=== PATIENT | male | born 1970 | race Caucasian/White ===

== ENCOUNTER 2016-10-28 08:37 | Day surgery (SDC) | payer BC ==
[~2016-10-28] VITALS: Ht 185.5 cm; Wt 122.0 kg
[2016-10-28] VITALS (143 sets, daily range): BP systolic 101–119; BP diastolic 57–87; PULSE 57–78; TEMP 96.6–98.4; O2SAT 90–99
[2016-10-28 09:59] LABS: HEMATOCRIT 41.6 % (42.0-52.0); HEMOGLOBIN 14.5 g/dl (13.5-18.0); MEAN CELL VOLUME 91 fl (80.0-100.0); MEAN CORPUSCULAR HEMOGLOBIN 32 pg (27.0-31.0); MEAN CORPUSCULAR HGB CONC 35 g/dl (33.0-37.0); MEAN PLATELET VOLUME 8.8 fl (7.4-10.4); PLATELET COUNT 221 K/mm3 (130-400); RED BLOOD COUNT 4.56 M/mm3 (4.20-5.60); REDCELL DISTRIBUTION WIDTH-CV 14.1 % (11.5-14.5); WHITE BLOOD COUNT 6.3 K/mm3 (4.8-10.8)
[2016-10-28 10:09] LABS: CALCIUM 8.5 mg/dL (8.4-10.2); CREATININE, serum 0.83 mg/dL (0.66-1.25); POTASSIUM 3.8 mmol/L (3.4-5.0); PROTHROMBIN TIME 11.3 SECONDS (9.7-12.8)
[2016-10-28] MEDS ORDERED: PRINIVIL5 MG PO (10:10)
[2016-10-28] MEDS ORDERED: PLAVIX 75MG TAB75 MG PO (10:13)
[2016-10-28] MEDS ORDERED: IMDUR 30MG30 MG/TAB PO (10:14)
[2016-10-28] MEDS ORDERED: LASIX 20MG TABL20 MG PO (10:14)
[2016-10-28] MEDS ORDERED: TOPROL XL 25MG25 MG PO (10:15)
[2016-10-28] MEDS ORDERED: LIPITOR 40MG TA40 MG PO (10:15)
[2016-10-28] MEDS ORDERED: NITROSTAT0.4 MG/TAB SL (10:16)
[2016-10-28] MEDS ORDERED: FLONASEALLERGY NS (10:16)
[2016-10-28] MEDS ORDERED: LAMICTAL200 MG PO (10:17)
[2016-10-28] MEDS ORDERED: ASPIRIN 81M81 MG/TA2 PO (10:17)
[2016-10-28] MEDS ORDERED: VALIUM 10MG10 MG/TAB PO (10:18)
[2016-10-28] MEDS ORDERED: NEURONTIN300 MG/CAP PO (10:18)
[2016-10-28] MEDS ORDERED: PERCOCET 325 MG1 TA2 PO (10:20)
[2016-10-29 03:02] VITALS: BP 94/59; PULSE 78; TEMP 99
[2016-10-29 08:02] VITALS: BP 100/63; PULSE 73; TEMP 97.4
[2016-10-29 08:37] LABS: BASO % 0.4 % (0.0-2.0); EOS # 0.2 (0.0-0.7); EOS % 2.7 % (0-4.0); GRAN % 59.9 % (42.2-75.2); HEMATOCRIT 40.9 % (42.0-52.0); HEMOGLOBIN 13.7 g/dl (13.5-18.0); LYMPH % 29.4 % (20.0-51.0); MEAN CELL VOLUME 93 fl (80.0-100.0); MEAN CORPUSCULAR HEMOGLOBIN 31 pg (27.0-31.0); MEAN CORPUSCULAR HGB CONC 34 g/dl (33.0-37.0); MEAN PLATELET VOLUME 9.1 fl (7.4-10.4); MONO # 0.5 (0.1-0.6); MONO % 7.3 % (1.7-9.3); PLATELET COUNT 211 K/mm3 (130-400); RED BLOOD COUNT 4.41 M/mm3 (4.20-5.60); WHITE BLOOD COUNT 6.7 K/mm3 (4.8-10.8)
[2016-10-29 09:13] LABS: CALCIUM 8.1 mg/dL (8.4-10.2); CREATININE, serum 0.82 mg/dL (0.66-1.25); POTASSIUM 4.1 mmol/L (3.4-5.0)
== END 2016-10-29 11:21 | disposition home or self-care (01) ==
LOC: COL.RAD 08:37 → ICU 12:15 → MEDICAL 17:54 → COL.RAD 10-29 11:21
PROVIDERS: Internal Medicine Cardiovascular Disease
DX: I25.10 Atherosclerotic heart disease of native coronary artery without angina pectoris (principal); R07.9 Chest pain, unspecified; R06.02 Shortness of breath; E78.5 Hyperlipidemia, unspecified; I10 Essential (primary) hypertension; F17.290 Nicotine dependence, other tobacco product, uncomplicated
CPT/HCPCS: OP; C1760; C1769; C1874; C1876; J0583; J2250; J2405; J3010; Q9967

== ENCOUNTER 2017-12-23 07:00 | Day surgery (SDC) | payer BC ==
[2017-12-23] VITALS (14 sets, daily range): BP systolic 95–112; BP diastolic 61–73; PULSE 52–80; TEMP 97.6–98.5
[~2017-12-23] VITALS: Ht 185.6 cm; Wt 110.0 kg
[~2017-12-23 07:00] MED LIST: ASPIRIN 81M81 MG/TA2 PO; FLONASEALLERGY NS; IMDUR 30MG30 MG/TAB PO; LAMICTAL200 MG PO; LASIX 20MG TABL20 MG PO; LIPITOR 40MG TA40 MG PO; NEURONTIN300 MG/CAP PO; NITROSTAT0.4 MG/TAB SL; PERCOCET 325 MG1 TA2 PO; PLAVIX 75MG TAB75 MG PO; PRINIVIL5 MG PO; TOPROL XL 25MG25 MG PO; VALIUM 10MG10 MG/TAB PO
[2017-12-23 07:40] LABS: HEMATOCRIT 44.8 % (42.0-52.0); HEMOGLOBIN 15.1 g/dl (13.5-18.0); MEAN CELL VOLUME 89 fl (80.0-100.0); MEAN CORPUSCULAR HEMOGLOBIN 30 pg (27.0-31.0); MEAN CORPUSCULAR HGB CONC 34 g/dl (33.0-37.0); MEAN PLATELET VOLUME 8.7 fl (7.4-10.4); PLATELET COUNT 215 K/mm3 (130-400); RED BLOOD COUNT 5.02 M/mm3 (4.20-5.60); REDCELL DISTRIBUTION WIDTH-CV 13.2 % (11.5-14.5)
[2017-12-23] MEDS ORDERED: DULCOLAX STOOL100 MG PO (07:47)
[2017-12-23 07:50] LABS: INR 0.9 (0.8-3.0); PROTHROMBIN TIME 10.1 SECONDS (9.7-12.8)
[2017-12-23 07:51] LABS: CALCIUM 8.9 mg/dL (8.4-10.2); CREATININE, serum 0.74 mg/dL (0.66-1.25); POTASSIUM 3.7 mmol/L (3.4-5.0)
[2017-12-23] MEDS ORDERED: IMDUR 60MG60 MG/TAB PO (09:33)
[2017-12-23] MEDS ORDERED: LIPITOR 80MG80 MG PO (09:33)
== END 2017-12-23 16:08 | disposition home or self-care (01) ==
LOC: COL.CAR 07:00
PROVIDERS: Internal Medicine Cardiovascular Disease
DX: I24.0 Acute coronary thrombosis not resulting in myocardial infarction (principal); I25.10 Atherosclerotic heart disease of native coronary artery without angina pectoris; I10 Essential (primary) hypertension; R00.2 Palpitations; E78.5 Hyperlipidemia, unspecified; F17.210 Nicotine dependence, cigarettes, uncomplicated; Z79.02 Long term (current) use of antithrombotics/antiplatelets; Z79.82 Long term (current) use of aspirin; Z79.899 Other long term (current) drug therapy; Z80.9 Family history of malignant neoplasm, unspecified; Z95.5 Presence of coronary angioplasty implant and graft
CPT/HCPCS: J2250; J3010; Q9967

== ENCOUNTER → 2020-11-08 | Outpatient (CLI) | payer MEDICARE ==
[~2020-11-08] MED LIST changes: +DULCOLAX STOOL100 MG PO; +IMDUR 60MG60 MG/TAB PO; +LIPITOR 80MG80 MG PO
== END ==
LOC: MHCPAIN 10:29
DX: M47.816 Spondylosis without myelopathy or radiculopathy, lumbar region (principal); M54.5 Low back pain; M53.3 Sacrococcygeal disorders, not elsewhere classified; G89.29 Other chronic pain
CPT/HCPCS: G0463

== ENCOUNTER → 2020-11-27 | Outpatient (CLI) | payer MEDICARE | LOC: MHCPAIN 11-20 16:34 | DX: M47.818 Spondylosis without myelopathy or radiculopathy, sacral and sacrococcygeal region (principal); M53.3 Sacrococcygeal disorders, not elsewhere classified | CPT/HCPCS: G0260; J1040; Q9967 ==

== ENCOUNTER → 2020-12-11 | Outpatient (CLI) | payer MEDICARE | LOC: MHCPAIN 10:45 | DX: M47.816 Spondylosis without myelopathy or radiculopathy, lumbar region (principal); M53.3 Sacrococcygeal disorders, not elsewhere classified; G89.29 Other chronic pain | CPT/HCPCS: G0463 ==

== ENCOUNTER → 2021-04-11 | Outpatient (CLI) | payer MEDICARE | LOC: MHCPAIN 10:49 | DX: M47.817 Spondylosis without myelopathy or radiculopathy, lumbosacral region (principal); M53.3 Sacrococcygeal disorders, not elsewhere classified; M54.5 Low back pain | CPT/HCPCS: G0463; J1040; Q9967 ==

== ENCOUNTER → 2021-04-12 | Outpatient (CLI) | payer MEDICARE | LOC: MHCPAIN 12:16 | DX: M47.817 Spondylosis without myelopathy or radiculopathy, lumbosacral region (principal); M53.3 Sacrococcygeal disorders, not elsewhere classified | CPT/HCPCS: G0260 ==

== ENCOUNTER → 2021-10-16 | Outpatient (CLI) | payer MEDICARE | LOC: MHCPAIN 10:27 | DX: M47.817 Spondylosis without myelopathy or radiculopathy, lumbosacral region (principal); M53.3 Sacrococcygeal disorders, not elsewhere classified; G89.29 Other chronic pain | CPT/HCPCS: G0463 ==

== ENCOUNTER → 2021-10-25 | Outpatient (CLI) | payer MEDICARE | LOC: MHCPAIN 08:43 | DX: M47.817 Spondylosis without myelopathy or radiculopathy, lumbosacral region (principal); M53.3 Sacrococcygeal disorders, not elsewhere classified | CPT/HCPCS: G0260; J1040; Q9967 ==

== ENCOUNTER 2022-02-22 12:52 | Inpatient (IN) | payer MEDICARE ==
[~2022-02-22] VITALS: Ht 185.4 cm; Wt 112.9 kg
[2022-02-22 13:19] LABS: BASO % 0.4 % (0.0-2.0); EOS # 0.3 K/mm3 (0.0-0.7); EOS % 2.8 % (0.0-4.0); GRAN # 5.8 K/mm3 (1.4-6.5); GRAN % 64.9 % (42.2-75.2); HEMOGLOBIN 15.6 g/dl (13.5-18.0); LYMPH # 2.2 K/mm3 (1.2-3.4); LYMPH % 23.9 % (20.0-51.0); MEAN CELL VOLUME 94 fl (80.0-100.0); MEAN CORPUSCULAR HEMOGLOBIN 31 pg (27-31); MEAN CORPUSCULAR HGB CONC 33 g/dl (33.0-37.0); MEAN PLATELET VOLUME 8.7 fl (7.4-10.4); MONO # 0.7 K/mm3 (0.1-0.6); MONO % 7.7 % (1.7-9.3); PLATELET COUNT 294 K/mm3 (130-400); RED BLOOD COUNT 5.01 M/mm3 (4.20-5.60); REDCELL DISTRIBUTION WIDTH-CV 14.6 % (11.5-14.5)
[2022-02-22 13:29] LABS: ALBUMIN 3.5 gm/dL (3.5-5.0); ANION GAP 14 mmol/L (7-16); BLOOD UREA NITROGEN 11 mg/dL (8-26); CALCIUM 9.3 mg/dL (8.4-10.2); CARBON DIOXIDE 28 mmol/L (22-29); CHLORIDE 102 mmol/L (98-107); CREATININE, serum 0.95 mg/dL (0.72-1.25); GLUCOSE 104 mg/dL (70-99); PHOSPHOROUS 3.6 mg/dL (2.3-4.7); POTASSIUM 3.9 mmol/L (3.5-4.5); SODIUM 144 mmol/L (136-145)
[2022-02-22 13:35] LABS: TROPONIN-I < 0.010 ng/mL (0.00-0.033)
[2022-02-22] MEDS ORDERED: CARTIA XT180 MG PO (13:46)
[2022-02-22] MEDS ORDERED: PROZAC40 MG PO (13:47)
[2022-02-22] MEDS ORDERED: IMDUR 60MG60 MG/TAB PO (13:48)
[2022-02-22] MEDS ORDERED: PROAIR HFA0.09 MG/AC IH (13:48)
[2022-02-22] MEDS ORDERED: VITAMIN D250 MCG PO (13:49)
[2022-02-22] MEDS ORDERED: VITAMIN B12 681 TAB PO (13:49)
[2022-02-22] MEDS ORDERED: SINGULAIR 110 MG/TAB PO (13:49)
[2022-02-22] MEDS ORDERED: VITAMIN C500 MG PO (13:49)
[2022-02-22] MEDS ORDERED: ZYRTEC 10MG10 MG PO (13:50)
--- NOTE | 2022-02-22 17:00 | NUR ---
PT TO FLOOR FROM ER. PT STATES THAT HE IS HAVING A10 OUT OF 10 CHEST PAIN. PT GIVEN MORPHINE. PT STATES THAT HE IS HUNGRY AND WOULD LIKE TO ORDER SOMETHING TO EAT. ASSISTED PT TO DO SO. PT STATES NO OTHER NEEDS AT THIS TIME. CALL LIGHT IS WTIHIN REACH.
[2022-02-22 17:38] LABS: HEMATOCRIT 47.4 % (42.0-52.0); MEAN CELL VOLUME 93 fl (80.0-100.0); MEAN CORPUSCULAR HEMOGLOBIN 31 pg (27-31); MEAN CORPUSCULAR HGB CONC 34 g/dl (33.0-37.0); MEAN PLATELET VOLUME 8.4 fl (7.4-10.4); PLATELET COUNT 295 K/mm3 (130-400); REDCELL DISTRIBUTION WIDTH-CV 14.5 % (11.5-14.5)
[2022-02-22 17:46] LABS: PROTHROMBIN TIME 11.3 SECONDS (9.7-12.8)
[2022-02-22 17:48] LABS: PARTIAL THROMBOPLASTIN TIME 30.6 SECONDS (26.0-37.0)
[2022-02-22 20:01] VITALS: BP 101/55; PULSE 45; TEMP 97.4
[2022-02-22 23:22] VITALS: BP 106/56; PULSE 49; TEMP 97.7
[2022-02-23 03:53] VITALS: BP 101/59; PULSE 52; TEMP 97.5
--- NOTE | 2022-02-23 05:00 | NUR ---
ASSESSMENT COMPLETE FOR THIS SHIFT. PT RESTING IN BED WATCHING TV. PT COMPLAINED OF CHEST PAIN. HOSPITALIST CALLED. NORCO ORDERED AND GIVEN. PT FELT NORCO WAS EFFECTIVE AT THIS TIME. PT DENIED SOB, N,V,D OR DIZZINESS. CALL LIGHT WITHIN REACH.
[2022-02-23 06:17] LABS: BASO % 0.2 % (0.0-2.0); EOS # 0.3 K/mm3 (0.0-0.7); EOS % 3.2 % (0.0-4.0); GRAN # 5.7 K/mm3 (1.4-6.5); GRAN % 59.2 % (42.2-75.2); HEMATOCRIT 41.6 % (42.0-52.0); LYMPH # 2.9 K/mm3 (1.2-3.4); LYMPH % 30.6 % (20.0-51.0); MEAN CELL VOLUME 94 fl (80.0-100.0); MEAN CORPUSCULAR HEMOGLOBIN 31 pg (27-31); MEAN CORPUSCULAR HGB CONC 33 g/dl (33.0-37.0); MEAN PLATELET VOLUME 8.6 fl (7.4-10.4); MONO # 0.6 K/mm3 (0.1-0.6); MONO % 6.5 % (1.7-9.3); PLATELET COUNT 236 K/mm3 (130-400); RED BLOOD COUNT 4.42 M/mm3 (4.20-5.60); REDCELL DISTRIBUTION WIDTH-CV 14.5 % (11.5-14.5)
[2022-02-23 06:27] LABS: HEMOGLOBIN 13.7 g/dl (13.5-18.0)
[2022-02-23 06:35] LABS: CALCIUM 8.7 mg/dL (8.4-10.2); CHOLESTEROL RISK RATIO 3.5; CREATININE, serum 0.76 mg/dL (0.72-1.25); MAGNESIUM 1.8 mg/dL (1.6-2.6); PHOSPHOROUS 4.4 mg/dL (2.3-4.7); POTASSIUM 4.2 mmol/L (3.5-4.5)
[2022-02-23 06:58] LABS: TSH w REFLEX 3.511 uIU/mL (0.350-4.940)
[2022-02-23 08:00] VITALS: BP 87/52; PULSE 52; TEMP 97.8
--- NOTE | 2022-02-23 08:50 | NUR ---
PT LAYING SUPINE IN BED ON ROOM AIR WATCHING TV. PT STATES THAT HE IS HAVING CHEST PAIN A 5 OUT OF 10. THERAPY AT BEDSIDE TO WORK WITH PT. HEPARIN DRIP INFUSING AT 10ML/HR. PT STATES NO NEEDS/CONCERNS AT THIS TIME. CALL LIGHT IS WITHIN REACH.
[2022-02-23 09:22] VITALS: BP 97/63
[2022-02-23 11:48] VITALS: BP 90/50; PULSE 59; TEMP 98.2
--- NOTE | 2022-02-23 14:47 | NUR ---
sheet metal layout worker met with patient to complete intake and discuss discharge plan. Patient reports that he lives at home [place] alone. He is independent with his ADL's and does not utilize any DME to assist with mobility. Patient does utilize a Bipap at night which is managed through [facility] in [place].Patient's pcp is in [place] and he utilizes [place] [employer] (Inspect Manager) for prescriptions. Patient states that his daughter is his DPOA-HC. He is scheduled to get a heart cath on Friday and possible pacemaker, but is planning on returning home once medically ready. Discharge plan:Home
[2022-02-23 15:53] VITALS: BP 84/50; PULSE 59; TEMP 98
--- NOTE | 2022-02-23 18:33 | NUR ---
PT LAYING SUPINE IN BED ON ROOM AIR. PT STATES THAT HE IS STILL HAVING CHEST PAIN. "IT HURTS WORSE NOW AFTER I TOOK THE PAIN PILL." PT STATES NO OTHER NEEDS/CONCERNS AT THIS TIME. CALL LIGHT IS WITHIN REACH.
[2022-02-23 20:26] VITALS: BP 104/58; PULSE 65; TEMP 97.8
[2022-02-24] VITALS (7 sets, daily range): BP systolic 88–116; BP diastolic 52–86; PULSE 55–72; TEMP 97.7–98.8
--- NOTE | 2022-02-24 06:00 | NUR ---
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 PT CONTINUES TO COMPLAIN AT CHEST PAIN. PT GIVEN NORCO FOR PAIN. NORCO SEEMS TO ALLOW PT TO SLEEP UNTIL MORNING BEFORE THE NEED FOR MORE PAIN MEDICATION. CALL LIGHT WITHIN REACH.
[2022-02-24 06:42] LABS: BASO # 0.1 K/mm3 (0.0-0.2); BASO % 0.6 % (0.0-2.0); EOS # 0.3 K/mm3 (0.0-0.7); GRAN % 50.3 % (42.2-75.2); HEMATOCRIT 39.9 % (42.0-52.0); HEMOGLOBIN 13.5 g/dl (13.5-18.0); LYMPH # 3.1 K/mm3 (1.2-3.4); LYMPH % 38.5 % (20.0-51.0); MEAN CELL VOLUME 92 fl (80.0-100.0); MEAN CORPUSCULAR HEMOGLOBIN 31 pg (27-31); MEAN CORPUSCULAR HGB CONC 34 g/dl (33.0-37.0); MEAN PLATELET VOLUME 8.9 fl (7.4-10.4); MONO # 0.5 K/mm3 (0.1-0.6); MONO % 6.2 % (1.7-9.3); PLATELET COUNT 241 K/mm3 (130-400); RED BLOOD COUNT 4.36 M/mm3 (4.20-5.60); REDCELL DISTRIBUTION WIDTH-CV 14.2 % (11.5-14.5)
[2022-02-24 06:51] LABS: ALBUMIN 3.1 gm/dL (3.5-5.0); CALCIUM 8.8 mg/dL (8.4-10.2); CREATININE, serum 0.77 mg/dL (0.72-1.25); MAGNESIUM 1.9 mg/dL (1.6-2.6); PHOSPHOROUS 4.2 mg/dL (2.3-4.7)
--- NOTE | 2022-02-24 09:13 | NUR ---
PT LAYING SUPINE IN BED ON ROOM AIR. PT STATES THAT HE IS STILL HAVING CHEST PAIN. PT STATES "I DON'T KNOW WHY BUT I AM REALLY TIRED TODAY. I JUST WANT TO LAY IN BED AND REST." PT STATES NO NEEDS/CONCERNS AT THIS TIME. CALL LIGHT IS WITHIN REACH.
--- NOTE | 2022-02-24 18:49 | NUR ---
pt laying supine in bed on room air. pt states that he is still having chest pain. prn pain medication was given. pt was infomred that he will be npo at midnight. pt voices understanding. pt states no other needs or concerns. call light is within reach.
[2022-02-25] VITALS (9 sets, daily range): BP systolic 102–117; BP diastolic 56–74; PULSE 54–89; TEMP 97.5–98.1
--- NOTE | 2022-02-25 04:57 | NUR ---
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 PT GIVEN NORCO PER REQUEST FOR CHEST PAIN. PT NPO AT MIDNIGHT. PT STATES HE FEELS LIKE THERE IS SOMETHING THE PHYSICIANS ARE KEEPING FROM HIM. HOWEVER PT COULD NOT TELL ME WHAT THE WAS. CALL LIGHT WITHIN REACH.
[2022-02-25 06:18] LABS: BASO % 0.5 % (0.0-2.0); EOS # 0.3 K/mm3 (0.0-0.7); GRAN # 3.9 K/mm3 (1.4-6.5); GRAN % 50.8 % (42.2-75.2); HEMATOCRIT 40.5 % (42.0-52.0); HEMOGLOBIN 13.3 g/dl (13.5-18.0); LYMPH # 2.9 K/mm3 (1.2-3.4); MEAN CELL VOLUME 94 fl (80.0-100.0); MEAN CORPUSCULAR HEMOGLOBIN 31 pg (27-31); MEAN CORPUSCULAR HGB CONC 33 g/dl (33.0-37.0); MEAN PLATELET VOLUME 8.8 fl (7.4-10.4); MONO # 0.6 K/mm3 (0.1-0.6); MONO % 7.4 % (1.7-9.3); PLATELET COUNT 250 K/mm3 (130-400); REDCELL DISTRIBUTION WIDTH-CV 14.4 % (11.5-14.5)
[2022-02-25 06:44] LABS: CALCIUM 8.7 mg/dL (8.4-10.2); CREATININE, serum 0.78 mg/dL (0.72-1.25); MAGNESIUM 1.9 mg/dL (1.6-2.6); PHOSPHOROUS 4.2 mg/dL (2.3-4.7); POTASSIUM 4.1 mmol/L (3.5-4.5)
--- NOTE | 2022-02-25 07:12 | NUR ---
HEPARIN GTT CONFIRMED AT 10UNITS AN HOUR.
--- NOTE | 2022-02-25 11:38 | NUR ---
See merge for all medication, assessment, intervention, and vital sign times.
--- NOTE | 2022-02-25 13:41 | NUR ---
PATIENT RETURNED FROM [facility] MICROBIOLOGIST, STILL COMPLAINING OF 5-6 OUT OF 10 CHEST PAIN.
--- NOTE | 2022-02-25 14:25 | NUR ---
PATIENT COMPLAINTS OF 9 OF 10 CHEST PAIN, RADIATING TO LEFT ARM. ALERT AND ORIENTED, HEPARIN GTT AT 10 UNITS AN HOUR. 1/2 NS HUNG ON GRAVITY TUBING FOR PROCEDURE, HEART CATH AND PACEMAKER PLANNED TODAY. NPO SINCE MIDNIGHT. SKIN INTACT. INDEPENDENT IN ROOM.
--- NOTE | 2022-02-25 19:00 | NUR ---
THE PATIENT IS ON THE FLOOR S/P PACEMAKER PLACEMENT. REPORT RCVD FROM LISE CORTEZ.
--- NOTE | 2022-02-25 19:49 | NUR ---
RELASED ALL AIR FROM SAFEGUARD DEVICE ON FEM SITE. NO BLEEDING, NO HEMATOMA. PULSES PATENT. PATIENT COMPLETED FLAT TIME, SAT PATIENT UP TO 35-40 DEGREES, REEVALUATED FEM-SITE. NO BLEEDING.
--- NOTE | 2022-02-25 20:18 | NUR ---
HEART CATH AND PACEMAKER PLACEMENT TODAY. PATIENT RETURNED IN SOME PAIN, PAIN MEDS PROVIDED, NO FURTHER DISCOMFORT. DIET REORDERED, PATIENT EATING AND TOLERATING PO INTAKE. NO BLEEDING AT FEMORAL SITE, NO HEMATOMA. PACEMAKER SITE SOFT, NO HEMATOMA PRESENT, NO PAIN. SAFEGUARD AIR REMOVED, HOWEVER SAFEGUARD STILL IN PLACE, TO REMOVE WOULD REMOVE TEGADERM AND DID NOT WANT TO DISTURB ANGIOSEAL AND CLOT. NO OTHER CONCERNS AT THIS TIME.
[2022-02-26] VITALS (8 sets, daily range): BP systolic 101–120; BP diastolic 59–70; PULSE 60–75; TEMP 97.7–98.3
[2022-02-26 06:16] LABS: BASO % 0.4 % (0.0-2.0); EOS # 0.3 K/mm3 (0.0-0.7); EOS % 4.3 % (0.0-4.0); GRAN # 5.1 K/mm3 (1.4-6.5); GRAN % 64.5 % (42.2-75.2); HEMATOCRIT 38.7 % (42.0-52.0); HEMOGLOBIN 12.8 g/dl (13.5-18.0); LYMPH # 1.8 K/mm3 (1.2-3.4); MEAN CELL VOLUME 94 fl (80.0-100.0); MEAN CORPUSCULAR HEMOGLOBIN 31 pg (27-31); MEAN CORPUSCULAR HGB CONC 33 g/dl (33.0-37.0); MEAN PLATELET VOLUME 8.8 fl (7.4-10.4); MONO # 0.6 K/mm3 (0.1-0.6); MONO % 7.5 % (1.7-9.3); PLATELET COUNT 209 K/mm3 (130-400); RED BLOOD COUNT 4.12 M/mm3 (4.20-5.60); REDCELL DISTRIBUTION WIDTH-CV 14.2 % (11.5-14.5)
--- NOTE | 2022-02-26 06:30 | NUR ---
THE PATIENT HAD AN UNEVENTFUL SHIFT. SOME MILD PAIN MOSTLY ALLEVIATED BY PAIN MEDICATIONS ORDERED. PT DID COMPLAIN OF DISCOMFORT AT THE PACER SITE. NO OTHER CONCERNS. REPORT GIVEN TO LISE CORTEZ.
[2022-02-26 06:45] LABS: ALBUMIN 2.9 gm/dL (3.5-5.0); CALCIUM 8.6 mg/dL (8.4-10.2); CREATININE, serum 0.74 mg/dL (0.72-1.25); MAGNESIUM 1.8 mg/dL (1.6-2.6); PHOSPHOROUS 3.8 mg/dL (2.3-4.7); POTASSIUM 3.7 mmol/L (3.5-4.5)
--- NOTE | 2022-02-26 08:34 | NUR ---
PATIENT C/O 8 OUT OF 10 PAIN. VITALS STABLE, A & O x 4. TOLERATING PO INTAKE. RESPERATIONS 12-14BPM. FEMERAL CATH SITE, BLOODY DRAINAGE NOT EXCEEDED FROM INITAL AREA UPON RETURN FROM MOLECULAR PATHOLOGIST. SAFE GUARD REMOVED FROM SITE THIS MORNING ON ASSESSMENT. LEFT AT BEDSIDE FOR SAFTEY MEASURES. GAUZE INTACT, WILL PLACE ADDITIONAL TEGADERM OVER SITE PRIMARY TEGADERM EDGES HAVE LIFTED. NO PAIN NOTED AT CATH SITE. PACEMAKER SITE EXTREMELY TENDER TO TOUCH, SOFT ON PALPATION, NO SIGNS OF HEMATOMA. NO BRUISING. DOWNLOAD COMPLETE. PAIN NOT CONTROLLED CURRENTLY. PATIENT INDEPENDENT IN ROOM. PATIENT CONCERNED ABOUT DISCHARGE TODAY WITH PAIN MANAGEMENT. WILL CONSULT PROVIDER.
[2022-02-26] MEDS ORDERED: CEPHALEXIN500 M1 PO (09:49)
--- NOTE | 2022-02-26 10:39 | NUR ---
Guidance Counselor met with patient and presented IM form. Patient verbalized understanding and provided signature. SW placed form in chart and provided copy to patient.
--- NOTE | 2022-02-26 14:34 | NUR ---
See merge for all medication, assessment, intervention, and vital sign times.
--- NOTE | 2022-02-26 19:14 | NUR ---
PATIENT WENT TO TUBE MOUNTER FOR PACER LEAD REVISION. RETURNED WITH 8(10) PAIN. CAPPED ON TYLENOL MG TILL 1744, ONE TIME DOSE OF ROXICODONE ORDERED AND GIVEN. PATIENT HAS HAD NO CALLED COMPLAINTS OF PAIN. MEALS ORDERED. VITALS STABLE.
[2022-02-27 03:41] VITALS: BP 118/61; PULSE 71; TEMP 97.9
[2022-02-27 06:56] LABS: BASO % 0.3 % (0.0-2.0); EOS # 0.4 K/mm3 (0.0-0.7); GRAN # 6.2 K/mm3 (1.4-6.5); GRAN % 66.7 % (42.2-75.2); HEMATOCRIT 39.1 % (42.0-52.0); HEMOGLOBIN 12.8 g/dl (13.5-18.0); LYMPH # 1.9 K/mm3 (1.2-3.4); LYMPH % 20.3 % (20.0-51.0); MEAN CELL VOLUME 94 fl (80.0-100.0); MEAN CORPUSCULAR HEMOGLOBIN 31 pg (27-31); MEAN CORPUSCULAR HGB CONC 33 g/dl (33.0-37.0); MEAN PLATELET VOLUME 8.8 fl (7.4-10.4); MONO # 0.8 K/mm3 (0.1-0.6); MONO % 8.3 % (1.7-9.3); PLATELET COUNT 199 K/mm3 (130-400); RED BLOOD COUNT 4.16 M/mm3 (4.20-5.60); REDCELL DISTRIBUTION WIDTH-CV 14.3 % (11.5-14.5)
[2022-02-27 07:12] LABS: ALBUMIN 3.1 gm/dL (3.5-5.0); CALCIUM 8.7 mg/dL (8.4-10.2); CREATININE, serum 0.75 mg/dL (0.72-1.25); MAGNESIUM 1.8 mg/dL (1.6-2.6); PHOSPHOROUS 3.9 mg/dL (2.3-4.7); POTASSIUM 3.8 mmol/L (3.5-4.5)
[2022-02-27 07:48] VITALS: BP 105/68; PULSE 65; TEMP 97.6
--- NOTE | 2022-02-27 08:20 | NUR ---
PATIENT RESTING IN BED, COMPLAINTS OF 7 (10) PAIN. NO BOWEL MOVEMENTS PER PATIENT IN "2-3 DAYS". BOWELS HYPOACTIVE IN ALL QUADS. PATIENT STATES HE IS STILL PASSING GAS. NO URINARY COMPLAINTS. APPETITE NORMAL. PLAN TO DISCHARGE HOME TODAY. WILL DISCUSS WITH PROVIDER PAIN MANAGEMENT FOR DISCHARGE.
--- NOTE | 2022-02-27 12:41 | NUR ---
ON H OURLY ROUNDING, PATIENT REPORTED BLOOD SPOTS ON HIS GOWN, THIS NURSE CHECKED GROIN CATH SITE, IT HAD BEEN BLEEDING. SMALL AMOUNT CHRISTY RED BLOOD. STAINING ON PATIENTS UNDERWEAR. GAUZE AND TEGADERM FROM PROCEDURE FALLING OFF. REMOVED BANDAGE, REPLACED WITH 2-PLY GAUZE FOLDED, FRESH TEGADERM. APPLIED MANUAL PRESSURE ON TOP OF A 2LB SANDBAG FOR 10MIN. NO ADDITIONAL DRAINAGE OR BLEEDING NOTED. LEFT 2LB SAND BAG IN PLACE ON SITE FOR AN ADDITIONAL 30MIN, WILL REASSESS SITE BEFORE DISCHARGE.
--- NOTE | 2022-02-27 14:00 | NUR ---
Patient groin site clean dry and intact. No drainage. This nurse assisted in dressing patient. Reviewed all discharge instructions. Iv discontinued, tele discontinued. Patient verbalized understanding of instructions. Patient walked out upon discharge with PCT escort and support person.
== END 2022-02-27 13:45 | disposition home or self-care (01) | DRG 243 ==
LOC: COL.ER 12:52 → MEDICAL 14:55
PROVIDERS: Emergency Medicine; ADMIT Internal Medicine
PROC: 4A023N7 Measurement of Cardiac Sampling and Pressure, Left Heart, Percutaneous Approach (ICD-10-PCS; principal; 2022-02-25)
PROC: 0JH606Z Insertion of Pacemaker, Dual Chamber into Chest Subcutaneous Tissue and Fascia, Open Approach (ICD-10-PCS; 2022-02-25)
PROC: 02HK3JZ Insertion of Pacemaker Lead into Right Ventricle, Percutaneous Approach (ICD-10-PCS; 2022-02-25)
PROC: 02WA3MZ Revision of Cardiac Lead in Heart, Percutaneous Approach (ICD-10-PCS; 2022-02-25)
PROC: 02H63JZ Insertion of Pacemaker Lead into Right Atrium, Percutaneous Approach (ICD-10-PCS; 2022-02-25)
PROC: B2111ZZ Fluoroscopy of Multiple Coronary Arteries using Low Osmolar Contrast (ICD-10-PCS; 2022-02-25)
DX: I49.5 Sick sinus syndrome (principal); T82.120A Displacement of cardiac electrode, initial encounter; R07.9 Chest pain, unspecified; I25.10 Atherosclerotic heart disease of native coronary artery without angina pectoris; I10 Essential (primary) hypertension; E78.5 Hyperlipidemia, unspecified; Z95.5 Presence of coronary angioplasty implant and graft; Z79.02 Long term (current) use of antithrombotics/antiplatelets; Z79.82 Long term (current) use of aspirin; Z79.899 Other long term (current) drug therapy; Z87.891 Personal history of nicotine dependence; Z20.822 Contact with and (suspected) exposure to COVID-19; Y84.8 Other medical procedures as the cause of abnormal reaction of the patient, or of later complication, without mention of misadventure at the time of the procedure
CPT/HCPCS: OP; 99232-AI; C1760; C1769; C1785; C1894; C1898; G0378; J0690; J1644; J2250; J2270; J3010; Q9967